=== PATIENT | female | born 1965 | race Caucasian/White ===

== ENCOUNTER 2020-04-04 13:18 | Emergency (ER) | payer MEDICARE, MEDICAID ==
[~2020-04-04] VITALS: Ht 167.6 cm; Wt 59.0 kg
[2020-04-04] MEDS ORDERED: Methocarbamol 750mg tab ORAL ONE (14:00)
[2020-04-04 14:05] VITALS: BP 141/87
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
[2020-04-04] MEDS ORDERED: HYDROcodone/Acetamin 5/325 tab ORAL ONE (14:45)
--- NOTE | 2020-04-04 15:53 | Diagnostic Imaging Report ---
Indication: Right hand pain Technique: 3 views right hand Comparison: none Findings: There is an angulated comminuted fracture of the fifth metacarpal. This is displaced by one bone width and overrides by a few millimeters. The bones are appear osteopenic. No other acute fracture. No dislocations. The joint spaces are preserved. Surgical hardware is seen along the ulnar shaft Impression: Positive for right fifth metacarpal fracture
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
--- NOTE | 2020-04-04 16:14 | Diagnostic Imaging Report ---
Indication: Left shoulder pain Technique: 2 views of the left clavicle Comparison: none Findings: There is a mid shaft clavicular fracture. This is somewhat angulated. Fracture overrides by about 2 cm, is displaced inferiorly by one bone width. Impression: Left clavicular fracture ER nurse practitioner Ynes garcia
--- NOTE | 2020-04-04 16:38 | Diagnostic Imaging Report ---
Indication: Left shoulder pain Technique: 3 views of the left shoulder Comparison: none Findings: There is a fracture of the left clavicle. This overrides by 2 cm, is inferiorly displaced by one bone width. No shoulder fracture demonstrated. The joint spaces are preserved Impression: Positive for left clavicular fracture Findings discussed by phone with nurse practitioner Ynes in the emergency room at the time of interpretation
[2020-04-04 16:50] VITALS: BP 137/83
[2020-04-04] MEDS ORDERED: NORCO 5-325 TA1 EAC1 ORAL (16:51)
[2020-04-04] MEDS ORDERED: IBUPROFEN400 MG ORAL (16:51)
[2020-04-04] MEDS ORDERED: LIDODERM700 M1 TOPIC (16:51)
[2020-04-04] MEDS ORDERED: CYCLOBENZAPRINE10 MG ORAL (16:51)
[2020-04-04 18:00] VITALS: BP 132/81
--- NOTE | 2020-04-04 18:00 | NUR ---
ER DISCHARGE NOTE: Patient is cleared to be discharged per ERMD, pt is aox4, on room air, with stable vital signs. pt was given dc and prescription instructions, pt was able to verbalize understanding, pt id band removed. pt is able to ambulate with steady gait. pt took all belongings. Pt has ulnar gutter splint and sling applied. Pulses presen bilateral radial 3+.
== END 2020-04-04 18:36 | disposition home or self-care (01) ==
LOC: EDBD 13:18 → EMR 14:10
DX: S62.316A Displaced fracture of base of fifth metacarpal bone, right hand, initial encounter for closed fracture (principal); S42.022A Displaced fracture of shaft of left clavicle, initial encounter for closed fracture; S80.02XA Contusion of left knee, initial encounter; S49.92XA Unspecified injury of left shoulder and upper arm, initial encounter; S60.221A Contusion of right hand, initial encounter; S20.212A Contusion of left front wall of thorax, initial encounter; V43.52XA Car driver injured in collision with other type car in traffic accident, initial encounter; Y92.411 Interstate highway as the place of occurrence of the external cause
CPT/HCPCS: 99284